=== PATIENT | male | born 1985 | race Caucasian/White ===

== ENCOUNTER 2019-02-07 07:31 | Day surgery (SDC) | payer BC, SELFPAY ==
--- NOTE | 2019-02-01 02:54 | HP_ITS ---
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 Is patient in pain?: Yes (umbilicus) Pain scale (1-10): 4 Allergies codeine Adverse Reaction (Mild, Verified 02/01/19 14:34) gi upset Medications arginine (L-arginine) 500 mg capsule mg PO QDAY cap 02/01/19 [History Confirmed 02/01/19] magnesium 200 mg tablet 200 mg PO DAILY 02/01/19 [History Confirmed 02/01/19] omega-3 fatty acids 1,250 mg capsule 1,250 mg PO DAILY 02/01/19 [History] zinc 50 mg tablet 50 mg PO DAILY 02/01/19 [History Confirmed 02/01/19] PFSH Medical History (Updated 02/01/19 @ 14:50 by Dank Ellis MD) Incarcerated umbilical hernia (Acute) No pertinent past medical history (Acute) Surgical History (Updated 02/01/19 @ 14:31 by Tia Peters) History of tonsillectomy (Acute) Family History (Updated 02/01/19 @ 14:32 by Tia Peters) Father Heart disease Mesothelioma Alzheimer disease Mother Breast cancer Social History (Updated 02/01/19 @ 14:54 by Dank Ellis MD) Smoking Status: Never smoker HPI HPI HPI: HELENA LLAMAS, is a 33 M who presents to the office today for HPI HPI Surgical H&P: Yes HPI: HELENA LLAMAS, is a 33 M who presents to the office today for urgent surgical referral by Dr. Zander Tabor for evaluation of a suspected incarcerated umbilical hernia. A written copy of my surgical consult recommendations will be returned to Dr. Tabor. Mr. Llamas is a very pleasant 33-year-old gentleman. 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 In addition to that he works out lifting significant amount of weight. 2 weeks ago while lifting he felt a stinging bulge at the umbilicus. He always is very tender to palpation the umbilicus does not like being touched but when he put his weight belt back on he was able to improve the area and he continued his exercises. He was then symptom-free for 2 weeks until again this morning he was doing squats and lifting and again felt a sharp pain. That caused him to present to his primary care physician who manipulated the area and according the patient now once again it feels improved. The patient states pain level 7 earlier today but now is down to 1 or 2. ROS General General: No weight change, appetite, fatigue, colon cancer, breast cancer or weakness HEENT HEENT: No difficulty swallowing, eye injury, eye surgery, swollen glands or hoarseness Endo Endocrine: No thyroid disease, diabetes mellitus, thyroid cancer, Hair loss, heat intolerance or cold intolerance Musc Musculoskeletal: No back problems, arthritis, rheumatoid arthritis, gout or joint pain Cardio Cardiovascular: No murmur, pacemaker, heart disease, atrial fibrillation, high blood pressure, heart attack, heart stent, palpitations, shortness of breat with exertion or chest pain Resp Respiratory: No shortness of breath, No sleep apnea, No cough, No COPD, No asthma, No emphysema, No wheezing Gastro Gastrointestinal: No abdominal pain, No nausea or vomiting, No diarrhea, No constipation, No blood in stool, No acid reflux, No hemorrhoids, No ulcers, No gallbladder problem, No black,tarry stools Shukri Hematologic: No blood thinners, No blood disorders, No bleeding, No anemia, No blood clots Neuro Neurologic: No weakness Exam Const General: cooperative, healthy appearing, comfortable Nutritional Appearance: overweight Orientation: alert, awake [facility] Head: normal to inspection Resp Effort & Inspection: normal respiratory effort Auscultation: clear to auscultation bilaterally Cardio Rate: regular rate Rhythm: regular rhythm Heart Sounds: no murmurs GI Palpation: soft, no hepatosplenomegaly Auscultation: normal bowel sounds Other: Prominent umbilical hernia with fibrofatty tissue nonreducible, no erythema, mildly tender Skin General: no rashes or lesions noted Neuro Cognition: normal cognition Extrem General: no calf tenderness bilaterally Psych Affect: normal affect Assessment & Plan Problems 1. Incarcerated umbilical hernia K42.0 Plan - Dank Ellis MD I concur with Dr. Zander Tabor's assessment that the patient has an incarcerated umbilical hernia. There is no suggestion of bowel involvement. This is likely preperitoneal fat. It appears that the manipulation that was performed has markedly improved the patient situation. I do not believe that he requires urgent emergency surgery today. That is fortunate because he states that at lunchtime he ate a very large meal. I am recommending to him a umbilical herniorrhaphy with mesh. In great detail discussed technique, benefits, risks, alternatives. 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 He is particularly aware about the need to allow this to heal and resolve and he is particularly aware about the risk of recurrence. He states that his is going out of town tomorrow. He may have difficulty in getting someone to assist with his children. I have recommended that we perform his repair tomorrow as an add-on procedure. He will consider his treatment options. If he cannot pursue tomorrow then again I recommend to the patient that he schedule at his very earliest convenience. I appreciate the opportunity of assisting with surgical care. We will proceed with surgery as soon as the patient deems reasonable. CC: Dr. Zander Ellis M.D., F.A.C.S. Coding Level of Care Code Off vis,new,level 3 Diagnoses Incarcerated umbilical hernia K42.0 02/02/19 1518 <Electronically signed by Wendy kitchen PA-C> Date _ Wendy Whittington PA-C I have re-examined the patient. There are no clinical changes since date of exam.
[2019-02-01 14:34] VITALS: BMI 32.0
[2019-02-07 08:02] LABS: Hematocrit 43.9 % (40-54); Mean Corp Hgb Conc 34.2 g/dL (32-36); Mean Corpuscular Hgb 30.2 pg (27.0-32.0); Mean Corpuscular Volume 88.3 fL (80-94); Mean Platelet Vol. 9.8 fl (6.2-12.0); Platelet Count 224 K/mm3 (150-450); RBC Distribution Width CV 12.2 % (11.6-14.6); RBC Distribution Width SD 39.3 fl (35.1-43.9); Red Blood Count 4.97 M/mm3 (4.6-6.2); White Blood Count 5.7 K/mm3 (4.4-11.0)
[2019-02-07 08:20] LABS: Anion Gap 8 (5-15); BUN 19 mg/dL (7-18); BUN/Creat Ratio 14.7 RATIO (10-20); Calcium,Total 9.2 mg/dL (8.5-10.1); Chloride 103 mmol/L (98-107); Creatinine, Serum 1.29 mg/dL (0.70-1.30); EST Glomerular Filtration Rate 69 mL/min (>60); Est Glom Filt Rate - Afr Amer 83 mL/min (>60); Glucose 99 mg/dL (74-106); Potassium 3.8 mmol/L (3.5-5.1); Sodium Level 138 mmol/L (136-145)
[2019-02-07 08:24] VITALS: BP 129/90; PULSE 76; RESP 14; TEMP 37.2; O2SAT 100; BMI 30.8
[2019-02-07] MEDS: Lactated Ringers 1,000 ML 100 ML IV (08:32)
--- NOTE | 2019-02-07 08:50 | HERN_PTH ---
PATIENT: HELENA LLAMAS Jr. LOC: [facility] [place] U#:[id number] AGE/SX: 33/M ROOM: RE02/07/[address]: Dr. Dank Ellis MD : 1985 BED: DIS: 02/07/2019 SPEC #: [id number] RECD: 02/07/19 11:51 STATUS: HAYDEE REAmanda #: [id number] JOSE: 02/07/19 08:[address]: Dank Ellis DEPT: SURGICAL PATHOLOGY RECD BY: Hreve Bustamante ENTERED: 02/07/19 12:28 SP TYPE: Hernia OTHR DR: Dr. Zander Tabor MD Tissues: HERNIA Procedures: Surgery Specimen Level II HEADER OPERATION: Incarcerated umbilical hernia repair with mesh PRE-OP DIAGNOSIS: Incarcerated umbilical hernia K42.0 TISSUE SUBMITTED: Hernia sac and contents MICROSCOPIC DIAGNOSIS Hernia sac and contents: Fragments of fibroadipose and fibroconnective tissue, consistent with hernia sac with focal chronic inflammation and reactive changes. CLIFF:deja 02/08/19 MICROSCOPIC DESCRIPTION Slides are reviewed. GROSS DESCRIPTION Received in fixative is one container labeled with the patient's name and designated hernia sac and contents. The specimen consists of multiple pieces of simms, indurated and adipose tissue that in aggregate measure 6.5 x 5 x 2 cm. No mass lesion is identified. Data Entry Operator sections are submitted in one cassette. / CLIFF:deja 02/07/19 TC:5 CPT: 16539
[2019-02-07] MEDS: Cefazolin 2 GM in 0.9% Normal Saline 100 ML IV (09:06)
--- NOTE | 2019-02-07 09:10 | DCINST_ITS ---
Discharge Diet: Light diet - advance as tolerated - if you have questions about your diet instructions, please talk to you doctor. Discharge Activity: May Not Drive - for 3-5 days or while taking narcotic pain medicine. May shower in (days): 1 Lifting Restrictions: 10 pounds Call your doctor if your incision/area has: Continuous Slow Oozing, Sudden Increased Bleeding, Increased Pain/ Swelling, Increased Redness, Foul Smelling Discharge Call your doctor if you observe: Fever of 101 or Higher Suture Line Care: Avoid Pulling/Pushing, Avoid Pinching/Bending Additional Dressing/Incision Instructions:: Change or remove dressing in 4 days. Leave steri-strips in place for 1 week. Allergies/Adverse Reactions: Allergies codeine Adverse Reaction (Mild, Verified 02/01/19 14:34) gi upset coconut Adverse Reaction (Verified 02/06/19 12:31) Nausea/Vom/Diarrhea hydrocodone [From Vicodin] Adverse Reaction (Verified 02/06/19 12:31) Nausea/Vom/Diarrhea Medications to take at Discharge arginine (L-arginine) 500 mg capsule 500 mg PO QDAY cap 02/01/19 magnesium 200 mg tablet 200 mg PO DAILY 02/01/19 omega-3 fatty acids 1,250 mg capsule 1,250 mg PO DAILY 02/01/19 zinc 50 mg tablet 50 mg PO DAILY 02/01/19 Primary Care Physician: Zander Tabor MD [Primary Care Provider] - Test Results: Test results from this visit will be discussed in further detail at your follow- up appointment, if applicable. Please Follow Up With: Dank Ellis MD - [phone] When: Call to make an appointment to be seen in about 7-10 days.
[2019-02-07] MEDS: Bupivacaine Mpf 0.5% 30 ML VIAL (10:11)
--- NOTE | 2019-02-07 10:12 | PCM.OPRPT ---
Problem List (1) Incarcerated umbilical hernia Status: Acute Report of Operation Date of Procedure: 02/07/19 Pre-Operative Diagnosis: Incarcerated umbilical hernia Post-Operative Diagnosis: Incarcerated umbilical hernia Surgery/Procedure Performed:: Umbilical herniorrhaphy with 4.[address] hernia patch. Lot [id number]. Ref [id number]. Expiry date 09/16/2020 Description of Surgical Findings:: Timeout and informed consent was obtained. 33 old gentleman taken out from placement table underwent general endotracheal intubation seizure. Ancef 2 g given intravenous preoperatively. The abdomen was sterilely prepped and draped. A curvilinear incision was was made at the inferior portion of the umbilicus. Sharp and blunt dissection identified that there was a significant amount of preperitoneal fatty tissue incarcerated within a very tight defect. Circumferentially the sac was dissected free. Excess umbilical skin was dissected free. The sac finding could be encountered and using sharp dissection electrocautery dissection was amputated at the fascial level. All specimens were submitted. The fascial defect approximately 1 cm diameter. A 4.3 cm ventral Buzz mesh was inserted. It seemed to unfold nicely. The tails were secured with 0 Nurolon. The fascia was approximated transversely with the same. [place] that had good closure of the fascia and good positioning of the support mesh. The skin was trimmed to size. Primary dermal anastomosis was performed with interrupted 4-0 Monocryl subdermal stitches and a couple surface stitches of 4-0 Monocryl were placed. Telfa cottonball OpSite dressing applied. Blood loss minimal. Specimens hernia sac skin and contents. Drains none. The patient was taken to recovery area in satisfactory addition with apparent complication Dank Ellis M.D., F.A.C.S. Type of Anesthesia:: General Anesthesiologist: Anita Spears
[2019-02-07 10:26] VITALS: BP 129/90; BP 136/44; PULSE 75; RESP 16; TEMP 36.2; O2SAT 98
[2019-02-07 10:36] VITALS: BP 127/73; BP 129/90; PULSE 66; RESP 16; O2SAT 97
[2019-02-07 10:45] VITALS: BP 124/59; BP 129/90; PULSE 60; RESP 16; O2SAT 97
[2019-02-07 10:54] VITALS: BP 129/59; BP 129/90; PULSE 55; RESP 16; TEMP 37; O2SAT 96
[2019-02-07 14:43] VITALS: BP 119/62; BP 129/90; PULSE 16; RESP 16; TEMP 36.7; O2SAT 97
== END 2019-02-07 14:49 | disposition home or self-care (01) ==
LOC: SDC 07:32 → AC 07:34
PROVIDERS: Family Provider Family Medicine; PCP Family Medicine; Referring Provider Surgery; Visit Provider Surgery
PROC: (CPT 49587; principal; 2019-02-07 08:35)
DX: K42.0 Umbilical hernia with obstruction, without gangrene (principal); E66.3 Overweight
CPT/HCPCS: 00830; 49587; 80048; 85027; 88302; J7120; C1781; J2405

== ENCOUNTER → 2020-11-13 09:40 | Outpatient (CLI) | payer BC, SELFPAY ==
[2020-11-13 12:11] LABS: Absolute Lymphocyte Count 1.43 X10^3/uL (0.83-4.51); Absolute Neutrophil Count 2.3 X10^3/uL (2.0-7.7); Basophil# 0.03 X10^3/uL; Basophil% 0.7 % (0-1); Eosinophil# 0.08 X10^3/uL; Eosinophils% 1.8 % (0-5); Hematocrit 39.2 % (40-54); Hemoglobin 13.6 g/dL (13.0-16.5); Lymphocyte # 1.43 X10^3/ul (0.83-4.51); Lymphocyte % 32.9 % (19-41); Mean Corp Hgb Conc 34.7 g/dL (32-36); Mean Corpuscular Volume 86.5 fL (80-94); Mean Platelet Vol. 10.4 fl (6.2-12.0); Monocyte# 0.48 X10^3/uL; Monocyte% 11.1 % (0-10); NRBC Flagged by Analyzer 0 % (0-5); Neutrophil # 2.31 X10^3/uL (2.7-7.7); Neutrophil % 53.3 % (47-70); Platelet Count 176 K/mm3 (150-450); RBC Distribution Width CV 11.7 % (11.6-14.6); RBC Distribution Width SD 37.2 fl (35.1-43.9); Red Blood Count 4.53 M/mm3 (4.6-6.2); White Blood Count 4.3 K/mm3 (4.4-11.0)
[2020-11-13 12:37] LABS: ALB/GLOB Ratio 1.2 RATIO (0.9-2.4); AST(SGOT) 30 U/L (15-37); Alanine Aminotransfer ALT/SGPT 39 U/L (16-61); Albumin, Serum 3.7 g/dL (3.2-5.0); Alkaline Phosphatase 75 U/L (45-117); Anion Gap 2 (5-15); BUN 14 mg/dL (7-18); BUN/Creat Ratio 13.3 RATIO (10-20); Calcium,Total 8.5 mg/dL (8.5-10.1); Chloride 110 mmol/L (98-107); Creatinine, Serum 1.05 mg/dL (0.70-1.30); EST Glomerular Filtration Rate 86 mL/min (>60); Est Glom Filt Rate - Afr Amer 104 mL/min (>60); Globulin 3.1 g/dL (2.2-4.2); Glucose 92 mg/dL (74-106); Protein, Total 6.8 g/dL (6.4-8.2); Sodium Level 139 mmol/L (136-145); T4 Free Direct 1.07 ng/dL (0.76-1.46); Thyroid Stim Hormone (TSH) 0.79 uIU/mL (0.358-3.74)
== END ==
PROVIDERS: PCP Family Medicine; Referring Provider Family Medicine; Visit Provider Family Medicine
DX: E07.9 Disorder of thyroid, unspecified (principal); R42 Dizziness and giddiness
CPT/HCPCS: 36415; 80053; 84439; 84443; 85025

== ENCOUNTER → 2020-11-15 12:09 | Outpatient (CLI) | payer BC, SELFPAY ==
--- NOTE | 2020-11-15 12:10 | US_ITS ---
STUDY: THYROID ULTRASOUND REASON FOR EXAM: Male, 35 years old. ASYMMETRICAL THYROID TECHNIQUE: Ultrasound evaluation of the thyroid was performed with real-time and static hernandez-scale imaging. COMPARISON: None. FINDINGS: RIGHT LOBE: The right lobe of the thyroid gland is slightly enlarged and measures 5.4 cm x 1.7 cm x 1.5 cm. There is a homogeneous echotexture. There are no demonstrated solid, cystic or complex lesions. LEFT LOBE: The left lobe of the thyroid gland is slightly enlarged and measures 5.5 cm x 1.6 cm x 1.6 cm. There is a homogeneous echotexture. There are no demonstrated solid, cystic or complex lesions. ISTHMUS: The isthmus measures 5 mm. The regional lymph nodes are normal. US/Thyroid IMPRESSION: Mildly enlarged thyroid gland. No focal abnormality is seen. Electronically Signed: George Moya MD at 15:15 EDT , Service support ,
== END ==
PROVIDERS: PCP Family Medicine; Referring Provider Family Medicine; Visit Provider Family Medicine
DX: E07.9 Disorder of thyroid, unspecified (principal)
CPT/HCPCS: 76536

== ENCOUNTER → 2020-11-15 | Outpatient (CLI) | payer BC, SELFPAY | END | disposition home or self-care (01) | LOC: LABSPEC 11:58 | PROVIDERS: PCP Family Medicine; Visit Provider Family Medicine | DX: R42 Dizziness and giddiness (principal) | CPT/HCPCS: 81050; 82384; 83497 ==

== ENCOUNTER → 2021-01-03 06:40 | Outpatient (CLI) | payer BC, SELFPAY ==
--- NOTE | 2021-01-03 06:50 | MRI_ITS ---
STUDY: MRI ABDOMEN WITH AND WITHOUT CONTRAST REASON FOR EXAM: Male, 35 years old. pheochromocytoma, FATIGUE, NAUSEA TECHNIQUE: Standardized fat and water weighted pulse sequences were obtained in all 3 orthogonal planes post contrast administration. IV 20cc dotarem was administered for the contrast portion of the examination. COMPARISON: None. FINDINGS: The visualized lung bases are unremarkable. The visualized portions of the heart are within normal limits. Normal liver. Normal gallbladder and extrahepatic biliary system. Normal spleen. Normal pancreas. Normal bilateral adrenal glands. Normal right kidney. Normal left kidney. Normal visualized stomach. Normal small intestine. Normal colon. Normal abdominal aorta. Normal inferior vena cava. Normal retroperitoneum. Normal abdominal wall. Normal osseous structures. MRI/MRI Abd WITH and W/O Contrast IMPRESSION: Normal unenhanced and enhanced MRI of the abdomen. Specifically, no evidence of pheochromocytoma. Electronically Signed: Johnathon Baron MD at 19:37 EDT Tel , Service support ,
== END ==
PROVIDERS: PCP Family Medicine; Referring Provider Family Medicine; Visit Provider Family Medicine
DX: D35.00 Benign neoplasm of unspecified adrenal gland (principal)
CPT/HCPCS: 74183; A9575; A4216

== ENCOUNTER → 2021-02-04 | Outpatient (CLI) | payer BC, SELFPAY ==
[2021-02-12 20:40] LABS: 5-HIAA, 24UR 2.3 mg/24 hr (0.0-14.9); 5-HIAA, UR 1.2 mg/L (Undefined)
== END | disposition home or self-care (01) ==
LOC: LABSPEC 14:24
PROVIDERS: PCP Family Medicine; Referring Provider Family Medicine; Visit Provider Family Medicine
DX: R42 Dizziness and giddiness (principal)
CPT/HCPCS: 81050; 83497

== ENCOUNTER 2021-02-25 10:59 | Day surgery (SDC) | payer BC, SELFPAY ==
[2021-02-25 11:29] VITALS: BP 141/76; PULSE 68; RESP 16; TEMP 36.8; O2SAT 100; BMI 32.0
[2021-02-25] MEDS: Lactated Ringers 1,000 ML 15 ML IV (11:36)
--- NOTE | 2021-02-25 12:00 | IMM_PTH ---
PATIENT: HELENA LLAMAS Jr. LOC: [place] U#:[id number] AGE/SX: 35/M ROOM: RE02/25/[address]: Dr. Manny Villa DO : 1985 BED: DIS: 02/25/2021 SPEC #: [id number] RECD: 02/26/21 10:41 STATUS: HAYDEE REQ #: [id number] JOSE: 02/25/21 12:[address]: Manny Villa DEPT: IMMUNOHISTOCHEMISTRY RECD BY: Dea Shepherd ENTERED: 02/26/21 10:41 SP TYPE: IMMUNO OTHR DR: Dr. Zander Tabor MD Tissues: B - Stomach, NOS C - Esophagus, NOS Procedures: H Pylori (initial) P53 (initial) KI-67 (add) PHYSICIAN & INSTITUTION [place] [id number] SPECIMEN INFORMATION: Tissue Source: B ? Gastric antrum, C ? Distal esophagus Clinical Info: Diarrhea, bloating Specimen Number: [id number] B & C CPT code: 32279 x2, 31482 METHODOLOGY: Deparaffinized sections of prefer/formalin-fixed tissue or PAP/DQ stained slides are incubated with monoclonal/polyclonal antibodies/oligonucleotide probes. Localization is made via biotin free immunoperoxidase method. Appropriate controls are performed and reacted as expected. Results on target cell population are indicated in the following table: RESULTS: ANTIBODY / CLONE RESULT Block B H Pylori (polyclonal) negative Block C P53 (DO-7) negative Ki-67 (30-9) negative These tests were developed and their performance characteristics determined by [facility]. They may not have been cleared or approved by the U.S. Food and Drug Administration. The FDA has determined that such clearance or approval is not necessary. INTERPRETATION: B. Gastric antrum, biopsy: Negative for Helicobacter pylori organisms. C. Distal esophagus, biopsy: No evidence of dysplasia. AM:deja 02/28/2021
--- NOTE | 2021-02-25 12:00 | EGD_PTH ---
PATIENT: HELENA LLAMAS Jr. LOC: [place] U#:[id number] AGE/SX: 35/M ROOM: RE02/25/[address]: Dr. Manny Villa DO : 1985 BED: DIS: 02/25/2021 SPEC #: [id number] RECD: 02/25/21 16:26 STATUS: HAYDEE WANDA #: [id number] JOSE: 02/25/21 12:[address]: Manny Villa DEPT: SURGICAL PATHOLOGY RECD BY: Tom Maya ENTERED: 02/26/21 09:46 SP TYPE: EGD BIOPSY OT DR: Dr. Zander Tabor MD Tissues: A - Duodenum, NOS B - Gastric mucous membrane C - Esophagus, NOS D - Ileum, NOS E - COLON BIOPSY Procedures: Special Stain Group II Surgery Specimen Level IV Alcian Blue/PAS (control) HEADER OPERATION: Colonoscopy PRE-OP DIAGNOSIS: Diarrhea, bloating TISSUE SUBMITTED: A ? Duodenum biopsy, B ? Gastric antrum for histo and H. pylori, C ? Distal esophagus biopsy, D ? Terminal ileum biopsy, E ? Random colonic biopsy MICROSCOPIC DIAGNOSIS A. Duodenum, biopsy: No pathologic change. B. Gastric antrum, biopsy: Mild chronic gastritis. See comment. C. Distal esophagus, biopsy: Gastroesophageal junctional mucosa with chronic inflammation. Focal goblet cell metaplasia consistent with Lei?s esophagus. Changes of reflux esophagitis. No evidence of dysplasia. See comment. D. Terminal ileum, biopsy: Prominent polymorphous lymphoid aggregates. E. Colon, random biopsy: No pathologic change. AM:deja 02/27/2021 COMMENT B. The results of immunohistochemistry for Helicobacter pylori will be reported separately ([id number]). C. Alcian blue/PAS stain with matched control supports the above diagnosis. Immunohistochemistry ([id number]) for P53 and Ki-67 will be performed and results will be reported separately. MICROSCOPIC DESCRIPTION Slides are reviewed. GROSS DESCRIPTION A - Received in fixative is one container labeled with the patient's name and designated duodenum biopsy. The specimen consists of multiple irregular fragments of light simms soft tissue that in aggregate measure 1.5 x 0.5 x 0.1 cm. The specimen is totally submitted in one cassette. B - Received in fixative is one container labeled with the patient's name and designated gastric antrum biopsy. The specimen consists of multiple irregular fragments of light simms soft tissue that in aggregate measure 1.2 x 0.4 x 0.1 cm. The specimen is totally submitted in one cassette. C - Received in fixative is one container labeled with the patient's name and designated distal esophagus. The specimen consists of multiple irregular fragments of light simms soft tissue that in aggregate measure 1 x 0.7 x 0.1 cm. The specimen is totally submitted in one cassette. D - Received in fixative is one container labeled with the patient's name and designated terminal ileum. The specimen consists of multiple irregular fragments of light simms soft tissue that in aggregate measure 1 x 0.6 x 0.1 cm. The specimen is totally submitted in one cassette. E - Received in fixative is one container labeled with the patient's name and designated random colon biopsy. The specimen consists of multiple irregular fragments of light simms soft tissue that in aggregate measure 2.5 x 1.3 x 0.1 cm. The specimen is totally submitted in one cassette. / AM:deja 02/26/21 TC:3 CPT: 74116 x5, 59309
--- NOTE | 2021-02-25 12:11 | PCM.HP.BLA ---
History and Physical Date of Admission: 02/25/21 5 M who presents to the office today for evaluation of diarrhea. For the last 3 years he has been experiencing problems of crampy abdominal pain associated with the need to defecate. It mostly happens in the mornings. There is no associated nausea or vomiting. He denies any bleeding per rectum. He has no family history of inflammatory bowel disease. Both of his parents are . His mother from breast cancer and his father from a complication of mesothelioma. He does not take any medicines on a daily basis and he has never had any abdominal surgeries. He underwent a work-up for pheochromocytoma. I believe he had serum and urine catecholamines and serum metanephrines drawn. He also underwent an MRI looking for an adrenal lesion. He said this was negative. He also underwent evaluation of his thyroid for possible thyromegaly. That subsequent work-up was negative. Several years ago he have been waking up most mornings with an uncomfortable stomach and frequent bowel movements and sometimes tenesmus. He gets occasional sharp and intense pain LLQ; no trigger identified. Bowel movements are generally normal but once a week he gets diarrhea without cause. Denies blood and mucous. If he eats first thing in the morning he feels generally unwell with shakiness, heavy eyes and uncomfortable stomach. If he waits several hours he does not have these symptoms. Has never had a colonoscopy prior. ROS Const Constitutional: Positive for fatigue and weight change Eyes Eyes: Positive for eye pain Gastro GI: Positive for abdominal pain, bloating, change in bowel habits, constipation and diarrhea Genitourinary Male: Positive for urinary frequency Musc Musculoskeletal: Positive for muscle cramps Endo Endocrine: Positive for fatigue, increased urine leakage and weight change Exam Const General: cooperative and comfortable Nutritional Appearance: average body habitus and well nourished [facility] Head: normal to inspection Ears: hearing grossly normal bilaterally Nose: external nose normal Face and sinus: normal facial exam Mouth: oral mucosae normal Throat: posterior oropharynx normal Eyes General: appearance normal, both eyes and all related structures Neck Neck: normal visual inspection Chest Chest palpation & inspection: normal inspection of the chest and normal palpation of entire chest wall Resp Effort & Inspection: normal respiratory effort Auscultation: Bilateral: Clear to Auscultation Cardio Palpation: normal PMI Rate: regular rate Rhythm: regular rhythm GI Inspection: normal to inspection Auscultation: normal bowel sounds Percussion: normal to percussion Palpation: no hepatosplenomegaly Skin General: no rashes or lesions noted Neuro General: patient alert Extrem General: normal to inspection Psych Affect: normal affect Quality Reporting Tobacco Screening ([facility] 138) Smoking Status: Never smoker Assessment and Plan Assessment and Plan (1) Diarrhea: Status: Acute Plan - Dr. Bryant Friend, DO: The differential diagnosis for his diarrhea would be inflammatory bowel disease, microscopic colitis, celiac disease, lymphocytic colitis. He is still undergoing work-up for pheochromocytoma. This sounds as if he has IBS with diarrhea. However that is a diagnosis of exclusion. He should get inflammatory markers drawn and genetic analysis for his diarrhea pending his upper and lower endoscopy. (2) Bloating: Status: Acute Plan - Dr. Bryant Friend, DO: The differential diagnosis for his bloating would be H. pylori associated gastritis or duodenitis, celiac disease, small bacterial overgrowth. He has a strong family history of diabetes. I am not sure what biochemical work-up he has had thus far. We will get records from his primary regarding his previous work-up for his bloating and diarrhea. I have re-examined the patient. There are no clinical changes since date of exam.
[2021-02-25 13:00] VITALS: BP 110/67; BP 141/76; PULSE 65; RESP 18; TEMP 36; O2SAT 98
--- NOTE | 2021-02-25 13:04 | OP.EGD_ITS ---
Patient Name: Clive Billings Procedure Date: 02/25/2021 12:04 PM Date of : 1985 Age: 35 Procedure: Upper GI endoscopy Indications: Epigastric abdominal pain Providers: Manny Villa DO Medicines: See the Anesthesia note for documentation of the administered medications Patient Profile: This is a 35 year old male. Refer to note in patient chart for documentation of history and physical. Patient has symptoms of chronic epigastric abdominal pain and chronic heartburn. Complications: No immediate complications. Procedure: Pre-Anesthesia Assessment: - Prior to the procedure, a History and Physical was performed, and patient medications and allergies were reviewed. The patient is competent. The risks and benefits of the procedure and the sedation options and risks were discussed with the patient. All questions were answered and informed consent was obtained. Patient identification and proposed procedure were verified by the physician in the pre-procedure area. Mental Status Examination: alert and oriented. Airway Examination: normal oropharyngeal airway and neck mobility. Respiratory Examination: clear to auscultation. CV Examination: normal. Prophylactic Antibiotics: The patient does not require prophylactic antibiotics. Prior Anticoagulants: The patient has taken no previous anticoagulant or antiplatelet agents. ASA Grade Assessment: II - A patient with mild systemic disease. After reviewing the risks and benefits, the patient was deemed in satisfactory condition to undergo the procedure. The anesthesia plan was to use moderate sedation / analgesia (conscious sedation). Immediately prior to administration of medications, the patient was re-assessed for adequacy to receive sedatives. The heart rate, respiratory rate, oxygen saturations, blood pressure, adequacy of pulmonary ventilation, and response to care were monitored throughout the procedure. The physical status of the patient was re-assessed after the procedure. After obtaining informed consent, the endoscope was passed under direct vision. Throughout the procedure, the patient's blood pressure, pulse, and oxygen saturations were monitored continuously. The gastroscope was introduced through the mouth, and advanced to the second part of duodenum. The upper GI endoscopy was accomplished without difficulty. The patient tolerated the procedure well. Moderate Sedation: Moderate (conscious) sedation was personally administered by an anesthesia professional. The following parameters were monitored: oxygen saturation, heart rate, blood pressure, and response to care. Total physician intraservice time was 15 minutes. Scope In: 12:21:27 PM Scope Out: 12:31:22 PM Total Procedure Duration Time 0 hours 9 minutes 55 seconds Findings: LA Grade A (one or more mucosal breaks less than 5 mm, not extending between tops of 2 mucosal folds) esophagitis with no bleeding was found 34 to 35 cm from the incisors. Biopsies were taken with a cold forceps for histology. Verification of patient identification for the specimen was done. Estimated blood loss was minimal. Patchy mildly erythematous mucosa without bleeding was found in the gastric antrum. This was biopsied with a cold forceps for histology. Verification of patient identification for the specimen was done. Estimated blood loss was minimal. A few diffuse erosions without bleeding were found in the first portion of the duodenum. Biopsies were taken with a cold forceps for histology. Verification of patient identification for the specimen was done. Estimated blood loss was minimal. A medium-sized hiatal hernia was present. Impression: - LA Grade A reflux esophagitis. Biopsied. - Erythematous mucosa in the antrum. Biopsied. - Duodenal erosions without bleeding. Biopsied. Recommendation: - Discharge patient to home. - Resume previous diet. - Continue present medications. - Await pathology results. - Repeat upper endoscopy in 1 year for surveillance based on pathology results. - Return to GI office in 2 weeks. Procedure Code(s): --- Professional --- 87396, Esophagogastroduodenoscopy, flexible, transoral; with biopsy, single or multiple CPT copyright 2017 [employer]. All rights reserved. The codes documented in this report are preliminary and upon power transformer repairer review may be revised to meet current compliance requirements. Manny Villa DO 02/25/2021 1:03:36 PM This report has been signed electronically. Number of Addenda: 1 Note Initiated On: 02/25/2021 12:04 PM Addendum Number: 1 Addendum Date: 11/26/2021 7:03:47 AM MAC was used instead of moderate sedation for the patient. Manny Villa DO 11/26/2021 7:03:53 AM This report has been signed electronically.
[2021-02-25 13:05] VITALS: BP 114/55; BP 141/76; PULSE 71; RESP 18; O2SAT 99
--- NOTE | 2021-02-25 13:09 | OP.COLON_ITS ---
Patient Name: Clive Billings Procedure Date: 02/25/2021 12:31 PM Date of : 1985 Age: 35 Procedure: Colonoscopy Indications: Chronic diarrhea Providers: Manny Villa DO Medicines: See the Anesthesia note for documentation of the administered medications Patient Profile: This is a 35 year old male. Refer to note in patient chart for documentation of history and physical. Patient has symptoms of chronic epigastric abdominal pain and chronic heartburn. Last Colonoscopy: none. The patient's first colonoscopy is today. Complications: No immediate complications. Procedure: Pre-Anesthesia Assessment: - Prior to the procedure, a History and Physical was performed, and patient medications and allergies were reviewed. The patient is competent. The risks and benefits of the procedure and the sedation options and risks were discussed with the patient. All questions were answered and informed consent was obtained. Patient identification and proposed procedure were verified by the physician in the pre-procedure area. Mental Status Examination: alert and oriented. Airway Examination: normal oropharyngeal airway and neck mobility. Respiratory Examination: clear to auscultation. CV Examination: normal. Prophylactic Antibiotics: The patient does not require prophylactic antibiotics. Prior Anticoagulants: The patient has taken no previous anticoagulant or antiplatelet agents. ASA Grade Assessment: II - A patient with mild systemic disease. After reviewing the risks and benefits, the patient was deemed in satisfactory condition to undergo the procedure. The anesthesia plan was to use moderate sedation / analgesia (conscious sedation). Immediately prior to administration of medications, the patient was re-assessed for adequacy to receive sedatives. The heart rate, respiratory rate, oxygen saturations, blood pressure, adequacy of pulmonary ventilation, and response to care were monitored throughout the procedure. The physical status of the patient was re-assessed after the procedure. After I obtained informed consent, the scope was passed under direct vision. Throughout the procedure, the patient's blood pressure, pulse, and oxygen saturations were monitored continuously. The pediatric colonoscope was introduced through the and advanced to. The Colonoscope was introduced through the anus and advanced to the terminal ileum. The colonoscopy was performed without difficulty. The patient tolerated the procedure well. The quality of the bowel preparation was good. Moderate Sedation: Moderate (conscious) sedation was administered by the endoscopy nurse and supervised by the endoscopist. The following parameters were monitored: oxygen saturation, heart rate, blood pressure, and response to care. Total physician intraservice time was 15 minutes. Scope In: 12:36:25 PM Scope Withdrawal Time 0 hours 10 minutes 38 seconds Scope Out: 12:56:39 PM Total Procedure Duration Time 0 hours 20 minutes 14 seconds Findings: The perianal and digital rectal examinations were normal. An area of mildly congested mucosa was found in the cecum. Biopsies were taken with a cold forceps for histology. Verification of patient identification for the specimen was done. Estimated blood loss was minimal. A scattered area of the terminal ileum was congested. Biopsies were taken with a cold forceps for histology. Verification of patient identification for the specimen was done. Estimated blood loss was minimal. Impression: - Congested mucosa in the cecum. Biopsied. - Congested mucosa in the terminal ileum. Biopsied. Recommendation: - Discharge patient to home. - Resume previous diet. - Continue present medications. - Await pathology results. - Repeat colonoscopy in 5 years for surveillance based on pathology results. - Return to GI office in 2 weeks. Procedure Code(s): --- Professional --- 78914, Colonoscopy, flexible; with biopsy, single or multiple G0500, Moderate sedation services provided by the same physician or other qualified health healthcare manager performing a gastrointestinal endoscopic service that sedation supports, requiring the presence of an independent trained observer to assist in the monitoring of the patient's level of consciousness and physiological status; initial 15 minutes of intra-service time; patient age 5 years or older (additional time may be reported with 72513, as appropriate) CPT copyright 2017 [employer]. All rights reserved. The codes documented in this report are preliminary and upon insurance clerk review may be revised to meet current compliance requirements. Manny Villa DO 02/25/2021 1:08:58 PM This report has been signed electronically. Number of Addenda: 1 Note Initiated On: 02/25/2021 12:31 PM Addendum Number: 1 Addendum Date: 11/26/2021 7:04:01 AM MAC was used instead of moderate sedation for the patient. Manny Villa DO 11/26/2021 7:04:06 AM This report has been signed electronically.
[2021-02-25 13:10] VITALS: BP 123/66; BP 141/76; PULSE 55; RESP 18; O2SAT 98
[2021-02-25 13:15] VITALS: BP 120/72; BP 141/76; PULSE 55; RESP 18; TEMP 36.1; O2SAT 100
[2021-02-25 13:56] VITALS: BP 136/86; BP 141/76; PULSE 54; RESP 18; TEMP 36.1; O2SAT 100
== END 2021-02-25 14:10 | disposition home or self-care (01) ==
LOC: EN 11:01 → AC 11:03
PROVIDERS: PCP Family Medicine; Referring Provider Internal Medicine Gastroenterology; Visit Provider Internal Medicine Gastroenterology
PROC: 0DJD8ZZ Inspection of Lower Intestinal Tract, Via Natural or Artificial Opening Endoscopic (ICD-10-PCS; CPT 45378; principal; 2021-02-25 11:55)
DX: K26.9 Duodenal ulcer, unspecified as acute or chronic, without hemorrhage or perforation (principal); K29.50 Unspecified chronic gastritis without bleeding; K44.9 Diaphragmatic hernia without obstruction or gangrene; K21.00 Gastro-esophageal reflux disease with esophagitis, without bleeding; J45.909 Unspecified asthma, uncomplicated
CPT/HCPCS: 43239; 45380; 87426; 88305; 88313; 88341; 88342; C9803; J7120; J2405

== ENCOUNTER → 2023-07-09 | Outpatient (CLI) | payer BC, SELFPAY ==
[2023-07-09 12:13] LABS: Absolute Lymphocyte Count 1.84 X10^3/uL (0.83-4.51); Absolute Neutrophil Count 3.8 X10^3/uL (2.0-7.7); Basophil# 0.04 X10^3/uL; Basophil% 0.6 % (0-1); Eosinophil# 0.04 X10^3/uL; Eosinophils% 0.6 % (0-5); Hematocrit 41.9 % (40-54); Hemoglobin 14.5 g/dL (13.0-16.5); Lymphocyte # 1.84 X10^3/ul (0.83-4.51); Lymphocyte % 29.6 % (19-41); Mean Corp Hgb Conc 34.6 g/dL (32-36); Mean Corpuscular Hgb 30.1 pg (27.0-32.0); Mean Corpuscular Volume 86.9 fL (80-94); Mean Platelet Vol. 9.9 fl (6.2-12.0); Monocyte# 0.53 X10^3/uL; Monocyte% 8.5 % (0-10); NRBC Flagged by Analyzer 0 % (0-5); Neutrophil # 3.76 X10^3/uL (2.7-7.7); Neutrophil % 60.5 % (47-70); Platelet Count 229 K/mm3 (150-450); RBC Distribution Width SD 38.4 fl (35.1-43.9); Red Blood Count 4.82 M/mm3 (4.6-6.2); White Blood Count 6.2 K/mm3 (4.4-11.0)
[2023-07-09 12:43] LABS: ALB/GLOB Ratio 1.5 RATIO (0.9-2.4); AST(SGOT) 33 U/L (15-37); Alanine Aminotransfer ALT/SGPT 44 U/L (16-61); Albumin, Serum 4.3 g/dL (3.2-5.0); Alkaline Phosphatase 76 U/L (45-117); Anion Gap 8 (5-15); BUN 18 mg/dL (7-18); BUN/Creat Ratio 14.3 RATIO (10-20); Chloride 107 mmol/L (98-107); Cholesterol 212 mg/dL (200); Creatinine, Serum 1.26 mg/dL (0.70-1.30); EST Glomerular Filtration Rate 69 mL/min (>60); Est Glom Filt Rate - Afr Amer 83 mL/min (>60); Globulin 2.8 g/dL (2.2-4.2); Glucose 88 mg/dL (74-106); High Density Lipoprotein 72 mg/dL; Potassium 3.8 mmol/L (3.5-5.1); Prolactin 4.8 ng/mL; Protein, Total 7.1 g/dL (6.4-8.2); Sodium Level 140 mmol/L (136-145); Thyroid Stim Hormone (TSH) 1.11 uIU/mL (0.358-3.74); Triglycerides 48 mg/dL; Very Low Density Lipoprotein 10 mg/dL (5-40)
[2023-07-16 09:09] LABS: Testosterone, % Free 1.59 % (1.50-4.20); Testosterone, Free 9.86 ng/dL (5.00-21.00); Testosterone, Total 620 ng/dL (264-916)
== END | disposition home or self-care (01) ==
LOC: MFPLAB 11:03
PROVIDERS: PCP Family Medicine; Visit Provider Family Medicine
DX: Z13.220 Encounter for screening for lipoid disorders (principal); K22.70 Barrett's esophagus without dysplasia; N64.4 Mastodynia; R63.5 Abnormal weight gain
CPT/HCPCS: 36415; 80053; 80061; 84146; 84402; 84403; 84443; 85025

== ENCOUNTER → 2024-07-10 | Outpatient (CLI) | payer BC, SELFPAY ==
[2024-07-10 12:25] LABS: Absolute Lymphocyte Count 1.47 X10^3/uL (0.83-4.51); Absolute Neutrophil Count 4.1 X10^3/uL (2.0-7.7); Basophil# 0.09 X10^3/uL; Basophil% 1.4 % (0-1); Eosinophil# 0.05 X10^3/uL; Eosinophils% 0.8 % (0-5); Hematocrit 41.4 % (40-54); Hemoglobin 14.3 g/dL (13.0-16.5); Lymphocyte # 1.47 X10^3/ul (0.83-4.51); Lymphocyte % 23.2 % (19-41); Mean Corp Hgb Conc 34.5 g/dL (32-36); Mean Corpuscular Hgb 30.1 pg (27.0-32.0); Mean Corpuscular Volume 87.2 fL (80-94); Mean Platelet Vol. 9.9 fl (6.2-12.0); Monocyte# 0.57 X10^3/uL; NRBC Flagged by Analyzer 0 % (0-5); Neutrophil # 4.14 X10^3/uL (2.7-7.7); Neutrophil % 65.4 % (47-70); Platelet Count 286 K/mm3 (150-450); RBC Distribution Width CV 12.5 % (11.6-14.6); Red Blood Count 4.75 M/mm3 (4.6-6.2); White Blood Count 6.3 K/mm3 (4.4-11.0)
[2024-07-10 12:31] LABS: Erythrocyte Sedimentation Rate 1 mm/hr (0-20)
[2024-07-10 13:13] LABS: ALB/GLOB Ratio 1.8 RATIO (0.9-2.4); AST(SGOT) 37 U/L (<=37); Alanine Aminotransfer ALT/SGPT 41 U/L (<=46); Albumin, Serum 4.4 g/dL (3.5-5.0); Alkaline Phosphatase 65 U/L (40-129); Anion Gap 9 (5-15); BUN 11 mg/dL (4-19); BUN/Creat Ratio 9.7 RATIO (10-20); Calcium,Total 9.3 mg/dL (7.6-11.0); Carbon Dioxide 22.5 mmol/L (21.0-32.0); Chloride 105 mmol/L (98-108); Creatinine, Serum 1.13 mg/dL (0.70-1.20); EST Glomerular Filtration Rate 86 (>60); Globulin 2.5 g/dL (2.2-4.2); Glucose 91 mg/dL (70-99); Hepatitis C Antibody Nonreactive (Nonreactive); Potassium 4.4 mmol/L (3.3-5.1); Protein, Total 6.9 g/dL (5.9-8.4); Sodium Level 137 mmol/L (133-145); Total Bilirubin 0.54 mg/dL (0.00-1.30)
[2024-07-10 13:19] LABS: Rheumatoid Factor < 10.0 IU/mL (<15)
[2024-07-10 14:24] LABS: CORTISOL AM 7.02 ug/dL (6.02-18.40)
[2024-07-11 11:08] LABS: ANTINUCLEAR ANTIBODIES DIRECT Negative (Negative)
[2024-07-11 17:08] LABS: Deamidated Gliadin IgA 4 units (0-19); Deamidated Gliadin IgG 3 units (0-19); Endomysial Antibody IgA Negative (Negative); Immunoglobulin A 115 mg/dL (90-386); Lyme Scn Total Ab w/Rflx Negative (Negative); t-Transglutaminase IgA <2 U/mL (0-3)
== END | disposition home or self-care (01) ==
LOC: MFPLAB 10:54
PROVIDERS: PCP Family Medicine; Referring Provider Family Medicine; Visit Provider Family Medicine
DX: K22.70 Barrett's esophagus without dysplasia (principal); G43.909 Migraine, unspecified, not intractable, without status migrainosus; M25.50 Pain in unspecified joint
CPT/HCPCS: 36415; 80053; 82533; 82784; 83516; 84443; 85025; 85652; 86038; 86255; 86431; 86618; 86803

== ENCOUNTER → 2024-08-09 | Outpatient (CLI) | payer BC, SELFPAY ==
--- NOTE | 2024-08-09 07:57 | US_ITS ---
PROCEDURE: ABDOMEN LIMITED 08/09/2024 REASON FOR EXAM: BLOATING Postprandial bloating. TECHNIQUE: Complete abdominal ultrasound hamm-scale images with color doppler. PATIENT PREPARATION: Per protocol COMPARISON: None FINDINGS: Liver: Mild hepatomegaly. The liver measures 18 cm. Gallbladder: No stones, sludge, wall thickening or tenderness. Common bile duct: Normal measuring 2 mm. . Pancreas: Visualized portions are sonographically unremarkable. Kidneys: The right kidney measures 11.9 cm 6.5 cm 7.2 cm.. US/Abdomen Limited IMPRESSION: Hepatomegaly. Reading Location: [place] [id number]
== END | disposition home or self-care (01) ==
LOC: US 07:53
PROVIDERS: PCP Family Medicine; Referring Provider Student in an Organized Health Care Education/Training Program; Visit Provider Student in an Organized Health Care Education/Training Program
DX: R14.0 Abdominal distension (gaseous) (principal)
CPT/HCPCS: 76705